=== PATIENT | male | born 1975 | race Caucasian/White ===

== ENCOUNTER 2018-03-02 10:29 | Emergency (ER) | payer OTHER ==
[2018-03-02] MEDS ORDERED: MAG HYDROX/AL HYDROX/SIMETH SUSP 30 ML UDCUP PO ONE (11:08)
[2018-03-02] MEDS ORDERED: LIDOCAINE 2% VISCOUS SOLN 20 ML UDCUP PO ONE (11:08)
--- NOTE | 2018-03-02 11:09 | ER Document Report ---
ED GI/ - General Chief Complaint: Abdominal Pain Stated Complaint: ABDOMINAL PAIN Time Seen by Provider: 03/02/18 10:57 Mode of Arrival: Ambulatory Information source: Patient Notes: Patient presents complaining of left upper quadrant abdominal pain for the past week. Patient states pain is worse after eating. Patient denies any fever, nausea, vomiting or diarrhea. Patient denies any urinary symptoms. Patient does report occasionally feeling lightheaded. Patient does report occasional binge drinking with last episode over a week ago. TRAVEL OUTSIDE OF THE [place] IN LAST 30 DAYS: No - HPI Patient complains to provider of: Abdominal pain Onset: Last week Timing/Duration: Persistent Quality of pain: Achy Pain Level: 4 Associated symptoms: Lightheaded. 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 denies: Fever EENT: No symptoms reported Cardiovascular: Lightheaded. denies: Chest pain Respiratory: No symptoms reported. denies: Cough, Short of breath Gastrointestinal: Abdominal pain. denies: Diarrhea, Nausea, Vomiting, Poor appetite Genitourinary: No symptoms reported. denies: Dysuria, Flank pain Male Genitourinary: No symptoms reported Musculoskeletal: No symptoms reported. denies: Back pain Skin: No symptoms reported Hematologic/Lymphatic: No symptoms reported Neurological/Psychological: No symptoms reported Physical Exam - Vital signs Vitals: Temp Pulse Resp BP Pulse Ox 98.3 F 60 18 112/71 100 03/02/18 10:37 03/02/18 10:37 03/02/18 10:37 03/02/18 10:37 03/02/18 10:37 - General General appearance: Appears well, Alert In distress: None - HEENT Head: Normocephalic, Atraumatic Eyes: Normal Conjunctiva: Normal Nasal: Normal Mouth/Lips: Normal Mucous membranes: Normal Pharynx: Normal Neck: Normal, Supple. No: Lymphadenopathy - Respiratory Respiratory status: No respiratory distress Chest status: Nontender Breath sounds: Normal Chest palpation: Normal - Cardiovascular Rhythm: Regular Heart sounds: S1 appreciated, S2 appreciated Murmur: No - Abdominal Inspection: Normal Distension: No distension Bowel sounds: Normal Tenderness: Tender - LUQ Organomegaly: No organomegaly - Back Back: Normal, Nontender. No: CVA tenderness - Extremities General upper extremity: Normal inspection, Normal strength General lower extremity: Normal inspection, Normal strength - Neurological Neuro grossly intact: Yes Cognition: Normal Maikol Coma Scale Eye Opening: Spontaneous Maikol Coma Scale Verbal: Oriented [place] Coma Scale Motor: Obeys Commands Maikol Coma Scale Total: 15 - Psychological Associated symptoms: Normal affect, Normal mood - Skin Skin Temperature: Warm Skin Moisture: Dry Skin Color: Normal Course - Re-evaluation Re-evalutation: 03/02/18 15:40 Patient's abdomen soft, nontender, patient denies any nausea or vomiting at this time. Reviewed results of patient's scan with him. No concern for any inflammatory bowel symptoms, obstruction or acute pathology at this time. Suspect patient likely has gastritis. Discussed things that can worsen gastritis. Patient states that he just remembered that he had been taking increased doses of [id number] anti-inflammatory medication for chronic left ankle pain. Patient encouraged to avoid alcohol and to follow-up with a regional service manager for further evaluation of his abdominal pain. - Vital Signs Vital signs: Temp Pulse Resp BP Pulse Ox 97.8 F 55 L 16 113/78 98 03/02/18 15:58 03/02/18 15:58 03/02/18 15:58 03/02/18 15:58 03/02/18 15:58 - Laboratory Result Diagrams: 03/02/18 11:16 03/02/18 11:16 Laboratory results interpreted by me: Labs- Entire Visit 03/02/18 03/02/18 03/02/18 11:16 11:16 11:16 WBC 7.9 RBC 4.71 Hgb 14.8 Hct 42.2 MCV 90 MCH 31.4 MCHC 35.1 RDW 13.9 Plt Count 227 Seg Neutrophils % 64.0 Lymphocytes % 26.1 Monocytes % 8.3 Eosinophils % 1.1 Basophils % 0.5 Absolute Neutrophils 5.1 Absolute Lymphocytes 2.1 Absolute Monocytes 0.7 Absolute Eosinophils 0.1 Absolute Basophils 0.0 Sodium 140.1 Potassium 4.5 Chloride 105 Carbon Dioxide 25 Anion Gap 10 BUN 13 Creatinine 0.84 Est GFR ( Amer) > 60 Est GFR (Non-Af Amer) > 60 Glucose 99 Calcium 9.2 Total Bilirubin 0.8 Direct Bilirubin 0.2 Neonat Total Bilirubin Not Reportable Neonat Direct Bilirubin Not Reportable Neonat Indirect Bili Not Reportable AST 21 ALT 22 Alkaline Phosphatase 51 Troponin I < 0.012 Total Protein 7.1 Albumin 4.3 Lipase 38.9 Urine Color Urine Appearance Urine pH Ur Specific Mayer Urine Protein Urine Glucose (UA) Urine Ketones Urine Blood Urine Nitrite Urine Bilirubin Urine Urobilinogen Ur Leukocyte Esterase Urine Mucus (Auto) Urine Ascorbic Acid 03/02/18 12:15 WBC RBC Hgb Hct MCV MCH MCHC RDW Plt Count Seg Neutrophils % Lymphocytes % Monocytes % Eosinophils % Basophils % Absolute Neutrophils Absolute Lymphocytes Absolute Monocytes Absolute Eosinophils Absolute Basophils Sodium Potassium Chloride Carbon Dioxide Anion Gap BUN Creatinine Est GFR ( Amer) Est GFR (Non-Af Amer) Glucose Calcium Total Bilirubin Direct Bilirubin Neonat Total Bilirubin Neonat Direct Bilirubin Neonat Indirect Bili AST ALT Alkaline Phosphatase Troponin I Total Protein Albumin Lipase Urine Color STRAW Urine Appearance CLEAR Urine pH 7.0 Ur Specific Mayer 1.009 Urine Protein NEGATIVE Urine Glucose (UA) NEGATIVE Urine Ketones NEGATIVE Urine Blood NEGATIVE Urine Nitrite NEGATIVE Urine Bilirubin NEGATIVE Urine Urobilinogen NEGATIVE Ur Leukocyte Esterase NEGATIVE Urine Mucus (Auto) RARE Urine Ascorbic Acid NEGATIVE - Diagnostic Test Radiology reviewed: Reports reviewed Discharge - Discharge Clinical Impression: Abdominal pain Qualifiers: Abdominal location: left upper quadrant Qualified Code(s): R10.12 - Left upper quadrant pain Condition: Stable Disposition: HOME, SELF-CARE Instructions: Abdominal Pain ([facility]) Additional Instructions: Return immediately for any new or worsening symptoms Followup with your primary care provider, call tomorrow to make a followup appointment Follow-up with a regional service manager for further evaluation. You may need additional outpatient studies to further evaluate your abdominal pain symptoms. Avoid alcohol and use of excessive nonsteroidal anti-inflammatory medications [id number] Prescriptions: Sucralfate [Carafate 1 gm Tablet] 1 gm PO ACHS #40 tablet Forms: Smoking Cessation Education, Return to Work Referrals: [facility] [Provider Group] - Follow up as needed JANINE ROSAS MD [ACTIVE STAFF] - Follow up as needed AMARIS LADD MD [NO LOCAL MD] - Follow up as needed JORY WONG MD [ACTIVE STAFF] - Follow up as needed
[2018-03-02 11:27] LABS: ABSOLUTE EOSINOPHILS # (AUTO) 0.1 10^3/uL (0.0-0.6); ABSOLUTE LYMPHOCYTES (AUTO) 2.1 10^3/uL (0.5-4.7); ABSOLUTE MONOCYTES (AUTO) 0.7 10^3/uL (0.1-1.4); ABSOLUTE NEUT (AUTO) 5.1 10^3/uL (1.7-8.2); BASOPHILS % (AUTO) 0.5 % (0-2); EOSINOPHILS % (AUTO) 1.1 % (0-6); HEMATOCRIT 42.2 % (37.9-51.0); HEMOGLOBIN 14.8 g/dL (13.5-17.0); LYMPHOCYTES % (AUTO) 26.1 % (13-45); MEAN CORPUSCULAR HEMOGLOBIN 31.4 pg (27.0-33.4); MEAN CORPUSCULAR HGB CONC 35.1 g/dL (32.0-36.0); MEAN CORPUSCULAR VOLUME 90 fl (80-97); MONOCYTES % (AUTO) 8.3 % (3-13); PLATELET COUNT 227 10^3/uL (150-450); RED BLOOD COUNT 4.71 10^6/uL (4.35-5.55); RED CELL DISTRIBUTION WIDTH 13.9 % (11.5-14.0); TOTAL CELLS COUNTED % (AUTO) 100 %; WHITE BLOOD COUNT 7.9 10^3/uL (4.0-10.5)
[2018-03-02 11:44] LABS: ALANINE AMINOTRANSFERASE 22 U/L (21-72); ALBUMIN 4.3 g/dL (3.5-5.0); ALKALINE PHOSPHATASE 51 U/L (38-126); ANION GAP 10 (5-19); ASPARTATE AMINO TRANSFERASE 21 U/L (17-59); BILIRUBIN,DIRECT 0.2 mg/dL (0.0-0.4); BILIRUBIN,TOTAL 0.8 mg/dL (0.2-1.3); BLOOD UREA NITROGEN 13 mg/dL (7-20); CALCIUM 9.2 mg/dL (8.4-10.2); CARBON DIOXIDE 25 mmol/L (22-30); CHLORIDE 105 mmol/L (98-107); GLUCOSE 99 mg/dL (75-110); LIPASE 38.9 U/L (23-300); POTASSIUM 4.5 mmol/L (3.6-5.0); SODIUM 140.1 mmol/L (137-145); TOTAL PROTEIN 7.1 g/dL (6.3-8.2)
--- NOTE | 2018-03-02 11:59 | RADIOLOGY REPORT (SQ) ---
EXAM DESCRIPTION: ACUTE ABDOMEN SERIES COMPLETED DATE/TIME: 03/02/2018 11:43 am REASON FOR STUDY: LUQ pain COMPARISON: None. NUMBER OF VIEWS: Three views. TECHNIQUE: Frontal chest, supine abdomen and upright/decubitus abdomen radiographic images acquired. LIMITATIONS: None. FINDINGS: CHEST: Lungs clear of infiltrates. FREE AIR: None. No abnormal gas collections. BOWEL GAS PATTERN: Nonobstructive pattern. No dilated loops or air fluid levels. CALCIFICATIONS: No suspicious calcifications. HARDWARE: None in the abdomen. SOFT TISSUES: No gross mass or suggestion of organomegaly. BONES: No acute fracture. No worrisome bone lesions. OTHER: No other significant finding. IMPRESSION: NO RADIOGRAPHIC EVIDENCE FOR ACUTE ABDOMINAL DISEASE. TECHNICAL DOCUMENTATION: JOB ID: [id number] [employer]- All Rights Reserved Reading location - IP/workstation name: [email or web address]-[email or web address]
--- NOTE | 2018-03-02 12:48 | EKG REPORT ---
SEVERITY:- ABNORMAL ECG - SINUS RHYTHM FIRST DEGREE AV BLOCK : Confirmed by: Gregg Guerrero MD 02-Mar-2018 12:48:04
[2018-03-02 12:51] LABS: APPEARANCE,URINE CLEAR; BILIRUBIN,URINE NEGATIVE (NEGATIVE); COLOR,URINE STRAW; GLUCOSE, URINE NEGATIVE (NEGATIVE); KETONES,URINE NEGATIVE (NEGATIVE); LEUKOCYTE ESTERASE,URINE NEGATIVE (NEGATIVE); NITRITE,URINE NEGATIVE (NEGATIVE); PROTEIN,URINE NEGATIVE (NEGATIVE); URINE SPECIFIC GRAVITY 1.009; UROBILINOGEN,URINE NEGATIVE mg/dL (<2.0)
--- NOTE | 2018-03-02 15:34 | RADIOLOGY REPORT (SQ) ---
EXAM DESCRIPTION: CT ABD/PELVIS WITH IV ORAL COMPLETED DATE/TIME: 03/02/2018 3:22 pm REASON FOR STUDY: LUQ pain COMPARISON: None. TECHNIQUE: CT scan of the abdomen and pelvis performed with intravenous and oral contrast using kaye jessie scanning technique with dynamic intravenous contrast injection. Images reviewed with lung, soft t issue, and bone windows. Reconstructed coronal and sagittal MPR images reviewed. Delayed images for e valuation of the urinary system also acquired. All images stored on PACS. All CT scanners at this facility use dose modulation, iterative reconstruction, and/or weight based d osing when appropriate to reduce radiation dose to as low as reasonably achievable (ALARA). [facility]: Dose Right [facility]: CareDose [facility]: Dose Right [facility]: Teradose 4D [facility]: [place] CONTRAST TYPE AND DOSE: contrast/concentration: Isovue 350.00 mg/ml; Total Contrast Delivered: 89.0 ml; Total Saline Delivered: 50.0 ml RENAL FUNCTION: GFR > 60. RADIATION DOSE: CT Rad equipment meets quality standard of care and radiation dose reduction techniq ues were employed. CTDIvol: 6.2 - 8.5 mGy. DLP: 796 mGy-cm. . LIMITATIONS: None. FINDINGS: LOWER CHEST: No significant findings. No nodules or infiltrates. LIVER: Normal size. No masses. No dilated ducts. SPLEEN: Normal size. No focal lesions. PANCREAS: No masses. No significant calcifications. No adjacent inflammation or peripancreatic fluid collections. Pancreatic duct not dilated. GALLBLADDER: No identified stones by CT criteria. No inflammatory changes to suggest cholecystitis. ADRENAL GLANDS: No significant masses or asymmetry. RIGHT KIDNEY AND URETER: No solid masses. No significant calcifications. No hydronephrosis or hyd roureter. LEFT KIDNEY AND URETER: No solid masses. No significant calcifications. No hydronephrosis or hydr oureter. AORTA AND VESSELS: No aneurysm. No dissection. Renal arteries, SMA, celiac without stenosis. RETROPERITONEUM: No retroperitoneal adenopathy, hemorrhage or masses. BOWEL AND PERITONEAL CAVITY: No obstruction. No visualized masses. No free fluid. No inflammatory ch anges or thickening of bowel wall. APPENDIX: Surgically absent. PELVIS: No significant masses. Normal bladder. No free fluid. ABDOMINAL WALL: Mild containing umbilical hernia. BONES: No significant or acute findings. OTHER: No other significant finding. IMPRESSION: NO SIGNIFICANT OR ACUTE FINDINGS IN THE ABDOMEN OR PELVIS. TECHNICAL DOCUMENTATION: JOB ID: [id number] Quality ID # [id number]: Final reports with documentation of one or more dose reduction techniques (e.g., Au tomated exposure control, adjustment of the mA and/or kV according to patient size, use of iterative reconstruction technique) 2010 [employer]- All Rights Reserved Reading location - IP/workstation name: [email or web address] [id number]
[2018-03-02 15:59] VITALS: BP 113/78
== END 2018-03-02 15:59 | disposition home or self-care (01) ==
LOC: ER 10:29
DX: R10.12 Left upper quadrant pain (principal); F17.200 Nicotine dependence, unspecified, uncomplicated; Z88.0 Allergy status to penicillin
CPT/HCPCS: 93005; 99285; 36415; 83690; 85025; 80053; 81001; 84484; 74022; 74177; 93010; J3490

== ENCOUNTER 2019-08-23 09:57 | Emergency (ER) | payer SELFPAY ==
--- NOTE | 2019-08-23 10:54 | ER Document Report ---
ED General <LYNN,ASHLEY - Last Filed: 08/23/19 14:09> - General TRAVEL OUTSIDE OF THE [place] IN LAST 30 DAYS: No - Related Data Home Medications: Multivitamin <ALLISON MONREAL - Last Filed: 08/23/19 14:26> - General Chief Complaint: Alcohol Withdrawl Stated Complaint: WITHDRAWAL/ALCOHOL Time Seen by Provider: 08/23/19 10:20 Primary Care Provider: [facility] [Outside] - Follow up as needed - HPI Notes: Patient is a 44-year-old male who presents the emergency department for evalua tion for help with alcohol withdrawal. The patient has been a longtime alcoholic. He states he was doing well for the last 11 months, although he admits to "a few slips." He states that he has been increasingly depressed over loss of job availability. 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 He admits to a recent 5-day drinking binge. He states he was drinking at least 1 case of beer daily. He is really unsure of the timeline. He states is been about 5 days since his last drink. He states that the second night was the worst. He is had shaking, sweating, vomiting. He is now keeping some fluids down. He is eating and drinking, still urinating. He states that his largest problem at this point is insomnia. He denies any current hallucinations, no suicidal or homicidal ideation. (ALLISON MONREAL) - Related Data Allergies/Adverse Reactions: amoxicillin [Amoxicillin] Allergy (Verified 03/02/18 10:33) Penicillins Allergy (Verified 03/02/18 10:33) Past Medical History - General Information source: Patient - Social History Smoking Status: Current Every Day Smoker Frequency of alcohol use: Heavy Drug Abuse: None Family History: None Patient has suicidal ideation: No Patient has homicidal ideation: No Renal/ Medical History: Denies: Hx Peritoneal Dialysis Psychiatric Medical History: Reports: Hx Depression Past Surgical History: Reports: Hx Appendectomy, Hx Orthopedic Surgery - left ankle - Immunizations Hx Diphtheria, Pertussis, Tetanus Vaccination: No <ALLISON MONREAL - Last Filed: 08/23/19 14:26> Review of Systems - Review of Systems Constitutional: See HPI Neurological/Psychological: See HPI -: Yes All other systems reviewed and negative <ALLISON MONREAL - Last Filed: 08/23/19 14:26> Physical Exam <ALLISON MONREAL - Last Filed: 08/23/19 14:26> - Vital signs Vitals: Temp Pulse Resp BP Pulse Ox 97.9 F 65 14 140/89 H 100 08/23/19 10:01 08/23/19 10:01 08/23/19 10:01 08/23/19 10:01 08/23/19 10:01 - Notes Notes: This is a very pleasant gentleman who appears his stated age, no acute distress. He is a very fine tremor to his hands, but otherwise shows no overt signs of internal stimuli, cooperative with examiner. Vital signs reviewed, please refer to chart. Head is normocephalic, atraumatic. Pupils equal round, reactive to light. Neck is supple without meningismus. Heart is regular rate and rhythm. Lungs are clear to auscultation bilaterally. Abdomen is soft, nontender, normoactive bowel sounds throughout. Extremities without cyanosis, clubbing. Posterior calves are nontender. Peripheral pulses are equal. Skin is warm and dry. Patient is awake, alert, neurological exam is nonfocal. (ALLISON MONREAL) Course - Laboratory Result Diagrams: 08/23/19 11:02 08/23/19 11:02 <ASHLEY LYNN - Last Filed: 08/23/19 14:09> - Laboratory Result Diagrams: 08/23/19 11:02 08/23/19 11:02 <ALLISON MONREAL - Last Filed: 08/23/19 14:26> - Re-evaluation Re-evalutation: 08/23/19 10:54 Patient presents to the emergency department for evaluation. Laboratory investigations are ordered. Consultation with psychosocial services ordered as well. Patient has trazodone at home and states that it has not been helping. Appreciate their input in regards to possible other treatments. Patient is stable at this time, we will continue to monitor. 08/23/19 14:21 Patient has remained stable. His laboratory investigations are unremarkable. It is been 5 days since he had a drink, but he is still having very mild symptoms. He would like potential inpatient or [facility]. Awaiting psychosocial clearance to that facility. (ALLISON MONREAL) - Vital Signs Vital signs: Temp Pulse Resp BP Pulse Ox 97.9 F 65 14 122/93 H 98 08/23/19 10:01 08/23/19 10:01 08/23/19 13:45 08/23/19 13:01 08/23/19 13:45 - Laboratory Laboratory results interpreted by me: 08/23/19 08/23/19 11:02 11:02 RDW 14.6 H Plt Count 100 L [place] % (Auto) 15.7 H Sodium 135.8 L AST 196 H ALT 132 H Salicylates < 1.0 L Acetaminophen < 10 L Discharge <ASHLEY LYNN - Last Filed: 08/23/19 14:09> <DEBRALARRYALLISON - Last Filed: 08/23/19 14:26> - Discharge Clinical Impression: Alcohol abuse Condition: Stable Disposition: HOME, SELF-CARE Additional Instructions: You have been evaluated by both medical and behavioral health teams for detox and have been deemed appropriate for discharge. While in the emergency department you received the following services: Medical screening and assessment, nursing services, dietary services, pharmacological services, one-on-one counseling and/or psychotherapy, environmental services, and continuous observation by a patient product safety specialist. The behavioral health team has secured a bed at [facility] for detox. This is a voluntary placement; you are highly encouraged to follow through with this placement. Please arrive at [facility] at 5pm, they will only hold this bed for your until 530pm. CHRONIC ALCOHOLISM and ALCOHOL ABUSE: Your evaluation reveals evidence of chronic alcoholism, an addiction to alcohol. The tendency to alcoholism may be inherited. Chronic use of alcohol weakens muscles, causes fatty deposits in the liver, damages the stomach, makes you more prone to infections, and can cause d efects in unborn children. In the long run, brain atrophy and cirrhosis of the liver result. You are also at greater risk for certain types of cancer, such as cancer of the mouth, throat, stomach, and liver. Counselling services are available to help you. In-hospital treatment programs often help. Support groups such as Alcoholics Anonymous can be very useful in beating this addiction. Your physician can make a referral for you. As alcoholics often are prone to other addictions, you should discuss your use of any other medications with the doctor. FOLLOW-UP CARE: If you have been referred to a physician for follow-up care, call the physicians office for an appointment as you were instructed or within the next two days. If you experience worsening or a significant change in your symptoms, notify the physician immediately or return to the Emergency Department at any time for re-evaluation. Referrals: [facility] [Outside] - Follow up as needed
[2019-08-23 11:20] LABS: ABSOLUTE BASOPHILS # (AUTO) 0.1 10^3/uL (0.0-0.2); ABSOLUTE EOSINOPHILS # (AUTO) 0.2 10^3/uL (0.0-0.6); ABSOLUTE LYMPHOCYTES (AUTO) 1.2 10^3/uL (0.5-4.7); ABSOLUTE MONOCYTES (AUTO) 0.7 10^3/uL (0.1-1.4); ABSOLUTE NEUT (AUTO) 2.4 10^3/uL (1.7-8.2); BASOPHILS % (AUTO) 1.3 % (0-2); EOSINOPHILS % (AUTO) 4.1 % (0-6); HEMATOCRIT 40.2 % (37.9-51.0); LYMPHOCYTES % (AUTO) 26.5 % (13-45); MEAN CORPUSCULAR HEMOGLOBIN 31.4 pg (27.0-33.4); MEAN CORPUSCULAR HGB CONC 34.9 g/dL (32.0-36.0); MEAN CORPUSCULAR VOLUME 90 fl (80-97); MONOCYTES % (AUTO) 15.7 % (3-13); PLATELET COUNT 100 10^3/uL (150-450); RED BLOOD COUNT 4.46 10^6/uL (4.35-5.55); RED CELL DISTRIBUTION WIDTH 14.6 % (11.5-14.0); SEGMENTED NEUTROPHILS % (AUTO) 52.4 % (42-78); TOTAL CELLS COUNTED % (AUTO) 100 %; WHITE BLOOD COUNT 4.6 10^3/uL (4.0-10.5)
[2019-08-23 11:40] LABS: ALBUMIN 4.4 g/dL (3.5-5.0); ALKALINE PHOSPHATASE 71 U/L (38-126); ANION GAP 7 (5-19); ASPARTATE AMINO TRANSFERASE 196 U/L (17-59); BILIRUBIN,TOTAL 0.7 mg/dL (0.2-1.3); BLOOD UREA NITROGEN 12 mg/dL (7-20); CALCIUM 9.2 mg/dL (8.4-10.2); CARBON DIOXIDE 23 mmol/L (22-30); CHLORIDE 106 mmol/L (98-107); GLUCOSE 95 mg/dL (75-110); TOTAL PROTEIN 7.2 g/dL (6.3-8.2)
[2019-08-23 11:44] LABS: ACETAMINOPHEN < 10 ug/mL (10-30); ALCOHOL < 10 mg/dL (NONE DETECTED); SALICYLATE < 1.0 mg/dL (2.0-20.0)
--- NOTE | 2019-08-23 13:11 | PSYCHOLOGICAL NOTE ---
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 Patient reports the last time he had a seizure was in 2013 however admits to having successfully detoxed multiple times since then without suffering from seizures. Patient reports he would like to go to [facility] but came here first "I wanted to get medically cleared to feel better about going into detox." He states he has not been able to sleep. He reports he has been able to move up to eating solids again but is still staying away from dairy. 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 Patient reports he has been sensitive to touch and at times feels like his mind is playing tricks on him stating "I could have sworn someone was in the house with me this morning but I knew there was not." Patient is alert and orientated to person, place, time and circumstance. Mood is euthymic with congruent affect. Patient denies suicidal and homicidal ideation. Delusions are absent and behaviors congruent with an intact reality based presentation ie organized and linear thought process. Eye contact is well-maintained. Conversational speech is within normal rate, tone and prosody. Intellectual abilities appear to be within the average range. Attention and concentration are good. Insight, judgment, impulse control are fair. Impression\\plan: Patient is cleared from acute psychiatric services. Patient is requesting assistance in getting into detox with [facility]. He reports he came to the ED to ensure he was medically alright since he has a history of having a seizure during detox (last time patient had a seizure was about 2013). The past time he went through detox was about 1 year ago and he did not have any complications (ie seizures, delirium, ect). Patient confirms he understands the rules are the same at [facility] and is packed and ready. A voluntary detox bed has b een secured for the patient for a 5pm arrival, he is encouraged to follow though with this voluntary placement. Dr. Ortiz was consulted to care management of this patient; attending physicians in agreement with recommendations and disposition.
[2019-08-23 13:14] LABS: APPEARANCE,URINE CLEAR; BILIRUBIN,URINE NEGATIVE (NEGATIVE); COLOR,URINE STRAW; GLUCOSE, URINE NEGATIVE (NEGATIVE); KETONES,URINE NEGATIVE (NEGATIVE); LEUKOCYTE ESTERASE,URINE NEGATIVE (NEGATIVE); NITRITE,URINE NEGATIVE (NEGATIVE); PROTEIN,URINE NEGATIVE (NEGATIVE); URINE SPECIFIC GRAVITY 1.003; UROBILINOGEN,URINE NEGATIVE mg/dL (<2.0)
[2019-08-23 13:34] LABS: URINE AMPHETAMINES SCREEN NEGATIVE; URINE BARBITURATES SCREEN NEGATIVE; URINE BENZODIAZEPINES SCREEN NEGATIVE; URINE COCAINE SCREEN NEGATIVE; URINE MARIJUANA (THC) SCREEN NEGATIVE; URINE METHADONE SCREEN NEGATIVE; URINE PHENCYCLIDINE SCREEN NEGATIVE
[2019-08-23 15:27] VITALS: BP 118/98
--- NOTE | 2019-08-23 21:24 | EKG REPORT ---
SEVERITY:- ABNORMAL ECG - SINUS RHYTHM FIRST DEGREE AV BLOCK : Confirmed by: Yvette Dave MD 23-Aug-2019 21:23:08
== END 2019-08-23 15:27 | disposition home or self-care (01) ==
LOC: ER 09:57
DX: F10.10 Alcohol abuse, uncomplicated (principal); F32.9 Major depressive disorder, single episode, unspecified; G47.00 Insomnia, unspecified; Z88.1 Allergy status to other antibiotic agents; F17.200 Nicotine dependence, unspecified, uncomplicated
CPT/HCPCS: 36415; 80053; 80307; 81001; 85025; 93005; 93010; 99285

== ENCOUNTER 2019-09-01 20:45 | Emergency (ER) | payer SELFPAY ==
--- NOTE | 2019-09-01 21:18 | ER Document Report ---
ED General - General Chief Complaint: ETOH Abuse Stated Complaint: ETOH ABUSE Time Seen by Provider: 09/01/19 21:12 Mode of Arrival: Ambulatory Information source: Patient Notes: 44-year-old male arrives with chief complaint of drinking a lot of alcohol after losing his job and becoming despondent about this. Patient had quit for many months but then resumed because of his personal loss. 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 His contract and he went from making money to no money. He likes to play the [employer] and was raised and [facility]. Patient is a usual beer drinker and drinks a case of beer over the last several weeks a day. Patient has been drinking vodka as well for the last day or so. Patient denies any suicidal ideation or homicidal ideation denies any chest pain diarrhea constipation skin rash liver disease sore throat cephalgia nuchal rigidity Patient has been [facility] but Tamela RUIZ advises she was told that the patient's alcohol level should be beneath 200. For this reason patient was given 2 L of saline and 2 L of LR TRAVEL OUTSIDE OF THE [place] IN LAST 30 DAYS: No - Related Data Allergies/Adverse Reactions: amoxicillin [Amoxicillin] Allergy (Verified 03/02/18 10:33) Penicillins Allergy (Verified 03/02/18 10:33) Past Medical History - General Information source: Patient - Social History Smoking Status: Current Every Day Smoker Cigarette use (# per day): Yes Chew tobacco use (# tins/day): No Smoking Education Provided: Yes Frequency of alcohol use: Heavy Drug Abuse: None Lives with: Family Family History: None Patient has suicidal ideation: No Patient has homicidal ideation: No Renal/ Medical History: Denies: Hx Peritoneal Dialysis Psychiatric Medical History: Reports: Hx Depression Past Surgical History: Reports: Hx Appendectomy, Hx Orthopedic Surgery - left ankle - Immunizations Hx Diphtheria, Pertussis, Tetanus Vaccination: No Review of Systems - Review of Systems Constitutional: See HPI, Malaise, Weakness EENT: No symptoms reported Cardiovascular: No symptoms reported Respiratory: No symptoms reported Gastrointestinal: No symptoms reported Genitourinary: No symptoms reported Male Genitourinary: No symptoms reported Musculoskeletal: No symptoms reported Skin: No symptoms reported Hematologic/Lymphatic: No symptoms reported Neurological/Psychological: No symptoms reported Physical Exam - Vital signs Vitals: Temp Pulse Resp BP Pulse Ox 98.9 F 87 18 122/88 H 98 09/01/19 20:50 09/01/19 20:50 09/01/19 20:50 09/01/19 20:50 09/01/19 20:50 Interpretation: Normal - General General appearance: Anxious - HEENT Head: Normocephalic, Atraumatic Eyes: Normal Pupils: PERRL Nasal: Normal Mouth/Lips: Normal Mucous membranes: Normal Pharynx: Normal Neck: Normal - Respiratory Respiratory status: No respiratory distress Chest status: Nontender Breath sounds: Normal Chest palpation: Normal - Cardiovascular Rhythm: Regular Heart sounds: Normal auscultation Murmur: No - Abdominal Inspection: Normal Distension: No distension Bowel sounds: Normal Tenderness: Nontender Organomegaly: No organomegaly - Genitourinary Scrotum: Other - deferred - Back Back: Normal, Nontender - Extremities General upper extremity: Normal inspection General lower extremity: Normal inspection - Neurological Neuro grossly intact: Yes Cognition: Normal Orientation: AAOx4 Edmonds Coma Scale Eye Opening: Spontaneous Edmonds Coma Scale Verbal: Oriented Edmonds Coma Scale Motor: Obeys Commands Edmonds Coma Scale Total: 15 Speech: Normal Motor strength normal: LUE, RUE, LLE, RLE Sensory: Normal - Psychological Associated symptoms: Normal affect - Skin Skin Temperature: Warm Skin Moisture: Dry Course - Vital Signs Vital signs: Temp Pulse Resp BP Pulse Ox 98.9 F 87 15 101/75 95 09/01/19 20:50 09/01/19 20:50 09/01/19 23:01 09/01/19 23:00 09/01/19 23:01 - Laboratory Result Diagrams: 09/01/19 21:17 09/01/19 21:17 Laboratory results interpreted by me: 09/01/19 09/01/19 09/01/19 21:17 21:17 21:17 RDW 15.3 H Plt Count 461 H Lactic Acid 2.3 H AST 87 H ALT 201 H Salicylates < 1.0 L Acetaminophen < 10 L Critical Care Note - Critical Care Note Total time excluding time spent on procedures (mins): 90 Comments: This case was turned over to Musa MENDOZA for recheck on alcohol level at 0 300 Discharge - Discharge Clinical Impression: Alcohol intoxication Qualifiers: Complication of substance-induced condition: uncomplicated Qualified Code(s): F10.920 - Alcohol use, unspecified with intoxication, uncomplicated Condition: Fair Disposition: PSYCH HOSP/UNIT Additional Instructions: Transfer this patient to rehab [facility] after discharge
[2019-09-01] MEDS: NORMAL SALINE 1000 ML 1,000 ML IV PRN (21:28)
[2019-09-01 21:33] LABS: HEMATOCRIT 42.9 % (37.9-51.0); HEMOGLOBIN 15.3 g/dL (13.5-17.0); MEAN CORPUSCULAR HEMOGLOBIN 31.8 pg (27.0-33.4); MEAN CORPUSCULAR HGB CONC 35.6 g/dL (32.0-36.0); MEAN CORPUSCULAR VOLUME 89 fl (80-97); PLATELET COUNT 461 10^3/uL (150-450); RED BLOOD COUNT 4.79 10^6/uL (4.35-5.55); RED CELL DISTRIBUTION WIDTH 15.3 % (11.5-14.0); WHITE BLOOD COUNT 6.4 10^3/uL (4.0-10.5)
[2019-09-01 21:48] LABS: ALBUMIN 4.8 g/dL (3.5-5.0); ALCOHOL 289 mg/dL (NONE DETECTED); ALKALINE PHOSPHATASE 60 U/L (38-126); ANION GAP 9 (5-19); ASPARTATE AMINO TRANSFERASE 87 U/L (17-59); BILIRUBIN,TOTAL 0.5 mg/dL (0.2-1.3); BLOOD UREA NITROGEN 12 mg/dL (7-20); CALCIUM 9.1 mg/dL (8.4-10.2); CARBON DIOXIDE 27 mmol/L (22-30); CHLORIDE 105 mmol/L (98-107); CREATINE KINASE 101 U/L (55-170); GLUCOSE 81 mg/dL (75-110); POTASSIUM 4.5 mmol/L (3.6-5.0); TOTAL PROTEIN 7.7 g/dL (6.3-8.2)
[2019-09-01 21:49] LABS: ACETAMINOPHEN < 10 ug/mL (10-30); SALICYLATE < 1.0 mg/dL (2.0-20.0)
[2019-09-01 21:50] LABS: ABSOLUTE LYMPHOCYTES# (MANUAL) 2.7 10^3/uL (0.5-4.7); ABSOLUTE MONOCYTES # (MANUAL) 0.8 10^3/uL (0.1-1.4); BASOPHILS % (MANUAL) 1 % (0-2); EOSINOPHILS % (MANUAL) 1 % (0-6); LYMPHOCYTES % (MANUAL) 40 % (13-45); MONOCYTES % (MANUAL) 12 % (3-13); SEGMENTED NEUTROPHILS % (MAN) 44 % (42-78); TOTAL CELLS COUNTED 100
[2019-09-01 21:52] LABS: ANISOCYTOSIS SLIGHT; PLATELET COMMENT ADEQUATE; POIKILOCYTOSIS SLIGHT; TEAR DROP CELLS SLIGHT; TOXIC GRANULATION SLIGHT
[2019-09-02] MEDS: RINGERS SOLUTION,LACTATED 1,000 ML IV PRN ×2 (00:53→01:44)
[2019-09-02 02:37] LABS: APPEARANCE,URINE CLEAR; BILIRUBIN,URINE NEGATIVE (NEGATIVE); COLOR,URINE YELLOW; GLUCOSE, URINE NEGATIVE (NEGATIVE); KETONES,URINE NEGATIVE (NEGATIVE); LEUKOCYTE ESTERASE,URINE NEGATIVE (NEGATIVE); NITRITE,URINE NEGATIVE (NEGATIVE); PROTEIN,URINE NEGATIVE (NEGATIVE); URINE SPECIFIC GRAVITY 1.014; UROBILINOGEN,URINE NEGATIVE mg/dL (<2.0)
[2019-09-02 02:40] LABS: URINE AMPHETAMINES SCREEN NEGATIVE; URINE BARBITURATES SCREEN NEGATIVE; URINE BENZODIAZEPINES SCREEN NEGATIVE; URINE COCAINE SCREEN NEGATIVE; URINE MARIJUANA (THC) SCREEN NEGATIVE; URINE METHADONE SCREEN NEGATIVE; URINE PHENCYCLIDINE SCREEN NEGATIVE
[2019-09-02] MEDS: NORMAL SALINE 1000 ML 1,000 ML IV PRN (04:04)
[2019-09-02 08:49] VITALS: BP 110/63
== END 2019-09-02 09:03 ==
LOC: ER 20:45
DX: F10.120 Alcohol abuse with intoxication, uncomplicated (principal); R53.81 Other malaise; R53.1 Weakness; F17.210 Nicotine dependence, cigarettes, uncomplicated; Z56.0 Unemployment, unspecified; Z88.0 Allergy status to penicillin
CPT/HCPCS: 99285; 96360; 96361; 36415; 80307 ×4; 82550; 83605; 85025; 80053; 81001; 84484; J7030 ×2; J7120

== ENCOUNTER 2019-09-28 01:25 | Emergency (ER) | payer SELFPAY ==
--- NOTE | 2019-09-28 02:18 | ER Document Report ---
ED General - General Chief Complaint: Suicidal Ideation Stated Complaint: IVC Time Seen by Provider: 09/28/19 01:52 TRAVEL OUTSIDE OF THE [place] IN LAST 30 DAYS: No - HPI Notes: Patient is a 44-year-old male with a history of depression and insomnia who presents to the emergency department for evaluation with IVC placed by his ex- . IVC alleged that the patient has been drinking heavily for the last several days, threatened to "blow his head off and burn the house down." The patient states he has no idea where that threat came from. He does admit that he has a binge drinking problem. He states that he does not have any suicidal ideation, nor does he have any homicidal ideation. He denies any visual or auditory hallucination. He denies any history of alcohol withdrawal seizures, states he can go months at a time without drinking, but when he does drink he drinks heavily. Patient has been hospitalized for alcohol abuse in the past, but never for any other psychiatric issues. At this time, the patient denies any pain. He states he has been eating and drinking normally. - Related Data Allergies/Adverse Reactions: amoxicillin [Amoxicillin] Allergy (Verified 09/28/19 01:32) Penicillins Allergy (Verified 09/28/19 01:32) Home Medications: Remeron Past Medical History - General Information source: Patient - Social History Smoking Status: Current Every Day Smoker Frequency of alcohol use: Heavy Drug Abuse: None Family History: None Patient has homicidal ideation: No Renal/ Medical History: Denies: Hx Peritoneal Dialysis Psychiatric Medical History: Reports: Hx Depression Past Surgical History: Reports: Hx Appendectomy, Hx Orthopedic Surgery - left ankle - Immunizations Hx Diphtheria, Pertussis, Tetanus Vaccination: No Review of Systems - Review of Systems Neurological/Psychological: See HPI -: Yes All other systems reviewed and negative Physical Exam - Vital signs Vitals: Temp 97.7 F 09/28/19 01:32 - Notes Notes: This is a 44-year-old male who appears his stated age. He smells strongly of alcohol and is mildly disheveled, intermittently tearful, but calm and cooperative with examiner. Vital signs reviewed, please refer to chart. Head is normocephalic, atraumatic. Pupils equal round, reactive to light. Neck is supple without meningismus. Heart is regular rate and rhythm. Lungs are clear to auscultation bilaterally. Abdomen is soft, nontender, normoactive bowel sounds throughout. Extremities without cyanosis, clubbing. Posterior calves are nontender. Peripheral pulses are equal. Skin is warm and dry. Patient is awake, alert, neurological exam is nonfocal. Course - Re-evaluation Re-evalutation: 09/28/19 02:20 Patient presents to the emergency department for evaluation. IVC is signed by , on chart. He is currently intoxicated. Awaiting laboratory investigations, which will likely show alcohol intoxication, but I am not expecting any other significant findings. Patient is stable at this time. We will continue to monitor. 09/28/19 03:13 Patient's laboratory investigations reveal markedly elevated alcohol. Otherwise his labs are unremarkable. Still awaiting toxicology, but salicylate and acetaminophen was negative. Pending his lowered alcohol level, patient is medically cleared for psychosocial evaluation. - Vital Signs Vital signs: Temp Pulse Resp BP Pulse Ox 97.7 F 128 H 16 153/119 H 94 09/28/19 01:41 09/28/19 01:41 09/28/19 01:41 09/28/19 01:41 09/28/19 01:41 - Laboratory Result Diagrams: 09/28/19 02:35 09/28/19 02:35 Laboratory results interpreted by me: 09/28/19 09/28/19 02:35 02:35 RDW 15.1 H Salicylates < 1.0 L Acetaminophen < 10 L Serum Alcohol 358 H* - EKG Interpretation by Me Additional EKG results interpreted by me: 09/28/19 03:12 Sinus mechanism with rate of 91 bpm. First-degree AV block. Normal axis. No acute ST changes concerning for ischemia or infarction. Discharge - Discharge Clinical Impression: Suicidal ideation Alcohol intoxication Qualifiers: Complication of substance-induced condition: uncomplicated Qualified Code(s): F10.920 - Alcohol use, unspecified with intoxication, uncomplicated Depression Qualifiers: Major depression recurrence: unspecified whether recurrent Major depression episode severity: unspecified Condition: Stable Disposition: OTHER
[2019-09-28 02:50] LABS: ABSOLUTE EOSINOPHILS # (AUTO) 0.1 10^3/uL (0.0-0.6); ABSOLUTE LYMPHOCYTES (AUTO) 2.4 10^3/uL (0.5-4.7); ABSOLUTE MONOCYTES (AUTO) 0.7 10^3/uL (0.1-1.4); ABSOLUTE NEUT (AUTO) 2.6 10^3/uL (1.7-8.2); BASOPHILS % (AUTO) 0.8 % (0-2); EOSINOPHILS % (AUTO) 1.9 % (0-6); HEMATOCRIT 47.2 % (37.9-51.0); HEMOGLOBIN 16.8 g/dL (13.5-17.0); LYMPHOCYTES % (AUTO) 41.3 % (13-45); MEAN CORPUSCULAR HEMOGLOBIN 31.4 pg (27.0-33.4); MEAN CORPUSCULAR HGB CONC 35.6 g/dL (32.0-36.0); MEAN CORPUSCULAR VOLUME 88 fl (80-97); MONOCYTES % (AUTO) 11.4 % (3-13); PLATELET COUNT 238 10^3/uL (150-450); RED BLOOD COUNT 5.35 10^6/uL (4.35-5.55); RED CELL DISTRIBUTION WIDTH 15.1 % (11.5-14.0); SEGMENTED NEUTROPHILS % (AUTO) 44.6 % (42-78); TOTAL CELLS COUNTED % (AUTO) 100 %; WHITE BLOOD COUNT 5.9 10^3/uL (4.0-10.5)
[2019-09-28 03:03] LABS: ALBUMIN 4.8 g/dL (3.5-5.0); ALKALINE PHOSPHATASE 82 U/L (38-126); ANION GAP 17 (5-19); ASPARTATE AMINO TRANSFERASE 50 U/L (17-59); BILIRUBIN,TOTAL 0.5 mg/dL (0.2-1.3); BLOOD UREA NITROGEN 10 mg/dL (7-20); CALCIUM 8.7 mg/dL (8.4-10.2); CARBON DIOXIDE 22 mmol/L (22-30); CHLORIDE 102 mmol/L (98-107); GLUCOSE 88 mg/dL (75-110); POTASSIUM 4.1 mmol/L (3.6-5.0); TOTAL PROTEIN 8.1 g/dL (6.3-8.2)
[2019-09-28 03:04] LABS: ACETAMINOPHEN < 10 ug/mL (10-30); SALICYLATE < 1.0 mg/dL (2.0-20.0)
[2019-09-28 03:11] LABS: ALCOHOL 358 mg/dL (NONE DETECTED)
[2019-09-28 10:05] LABS: APPEARANCE,URINE SLIGHTLY-CLOUDY; BILIRUBIN,URINE NEGATIVE (NEGATIVE); COLOR,URINE YELLOW; GLUCOSE, URINE NEGATIVE (NEGATIVE); KETONES,URINE 20 mg/dL (NEGATIVE); LEUKOCYTE ESTERASE,URINE NEGATIVE (NEGATIVE); NITRITE,URINE NEGATIVE (NEGATIVE); PROTEIN,URINE NEGATIVE (NEGATIVE); URINE SPECIFIC GRAVITY 1.013; UROBILINOGEN,URINE NEGATIVE mg/dL (<2.0)
[2019-09-28 10:19] LABS: URINE AMPHETAMINES SCREEN NEGATIVE; URINE BARBITURATES SCREEN NEGATIVE; URINE BENZODIAZEPINES SCREEN NEGATIVE; URINE COCAINE SCREEN NEGATIVE; URINE MARIJUANA (THC) SCREEN NEGATIVE; URINE METHADONE SCREEN NEGATIVE; URINE PHENCYCLIDINE SCREEN NEGATIVE
--- NOTE | 2019-09-29 00:19 | ER Document Report ---
Doctor's Note Notes: 09/29/19 00:17 Patient seen and examined. In short, the patient presented yesterday intoxicated, had reported to that he was suicidal, was going to burn the house down. She filled out commitment papers. Awaiting placement for this patient. At this point, the patient seems to be resentful of the fact that IVC papers were filed, but he is calm, cooperative, willing to receive help. He denies any acute needs, pain, or complaints. Vital signs reviewed. Patient is awake alert, cooperative examiner. Heart regular rate and rhythm, lungs encrustation bilaterally. Skin is warm and dry. Again, patient with suicidal ideation, binge drinking, awaiting placement as per psychosocial recommendation.
--- NOTE | 2019-09-29 22:35 | PSYCHOLOGICAL NOTE ---
Psych Note - Psych Note Date seen by psych provider: 09/29/19 Time seen by psych provider: 21:30 Psych Note: Reason for Consult: Suicidal ideation Consult request received 09/29/2019 at 2017. Patient arrived 0125 on 09/28/2019 under IVC 24 hour petition for evaluation served at 0059 09/28/2019. Petition was taken out by patient's for concerns for the patient's drinking and making suicidal and homicidal comments. The petition reports the patient stated he wanted to burn the house down with family in it and blow his brains out. The petition has prior to consult request. Patient confirms he has had difficulty over the years with alcoholism and goes on benders that last for days. He reports that normally he drinks only beer however the night he arrived he had actually drank beer and vodka; "I get sideways when I drink clear alcohol, I do not remember saying those things but if I did it was the alcohol talking." Patient denies wanting to harm himself or others. Patient was served today with a domestic protective order. He discusses with clinician his thoughts and emotions surrounding this stating that he is very surprised and hurt but has no plans in trying to challenge or break the protective order. He reports that all he can do is go to court and present his case. Patient states that upon discharge he knows he has to contact the local civil division commander deputy sheriff's department to help him be able to grab his personal belongings from his home. He plans to stay with his mother or some friends. Patient's mother lives in [place] and he has a couple friends and's needs very. Patient discloses he would never harm himself or others and has plenty of friends that would confirm this. Patient states that things have been stressful at home since "the COVID thing" stating that financially things have been difficult. [place] but then lost his job because of COVID; "going from $30 an hour to $600 a week and unemployment." Patient reports that his has her grown adult sons living in the home. He confirms they work however states that it is very frustrating that they will spend $400 at [employer] and all they do is eaten within a week all the food will be gone. 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 to do real estate; "it has been difficult with me being the sole provider because real estate really is not solid it is more hit and miss and then I lost my job." Patient does become tearful briefly when thinking about the end of his marriage stating "this is why people are not supposed to talk out of anger gets blown up out of proportion." When discussing plan of care the patient identifies normally taking home medication of Remeron however had not been taking it because he had been drinking; "it says right there on the bottle not to take it when you drink alcohol." Patient would like to stay voluntarily to restart his psychiatric medications then be able to follow-up with his outpatient mental health provider and the [facility] department tomorrow for coordination to obtain his personal belongings. Patient notes that he will have to turn in all of his weapons to the civil division commander deputy sheriff and that when he goes to court he is going to voluntarily go to substance abuse treatment if the batter out wants him to go. Patient is alert and orientated to person, place, time and circumstance. Mood is dysphoric with tearful affect at times. Patient adamantly denies suicidal and homicidal ideations. He admits to the possibility of making suicidal and homicidal comments while under the influence. Delusions are absent behaviors congruent with an intact reality based presentation i.e. organized and linear thought process. Eye contact is well-maintained. Conversational speech is within normal rate, tone and prosody. Intellectual abilities appear to be within the average range. Attention and concentration are currently good. Insight, judgment, impulse control is good when developing plan of care however historically is poor in connection to his chronic alcoholism. Home medication per chart review Mirtazapine 15mg every evening Impression\\plan: Patient is requesting to voluntarily stay to restart his psychiatric medications. Patient's IVC 24-hour petition for evaluation has . Patient does not meet IVC criteria per [place] GS 122C at this time. Patient admits to the possibility that he made suicidal and homicidal comments while under the influence. He adamantly denies intent. Patient identifies drinking vodka which historically has resulted in poor control of his emotions and decision making when under the influence. Patient demonstrates good insight and judgment in regards to his plan of care. There is concern with the patient's history of chronic alcoholism that there is a chance he will not follow through with substance abuse treatment; however, he identifies willingness to go to a voluntary residential treatment for his alcohol abuse if requested to go by the batter out. Patient engages appropriately with clinician and discusses his thoughts and emotions surrounding being served domestic protection order today and events surrounding the other evening. Patient is recommended to follow-up with his outpatient mental health provider, [facility] to continue substance abuse treatment. Patient will be reevaluated with probable discharge tomorrow. Dr. Ortiz was consulted to care management of this patient; attending physicians in agreement with recommendations and disposition.
[2019-09-29] MEDS ORDERED: MIRTAZAPINE 15 MG TABLET PO SCH (23:15)
--- NOTE | 2019-09-30 10:39 | EKG REPORT ---
SEVERITY:- ABNORMAL ECG - SINUS RHYTHM FIRST DEGREE AV BLOCK : Confirmed by: Miranda Vallejo 30-Sep-2019 10:38:34
--- NOTE | 2019-09-30 13:04 | PSYCHOLOGICAL NOTE ---
Psych Note - Psych Note Date seen by psych provider: 09/30/19 Time seen by psych provider: 12:20 Psych Note: Reason for Consult: Suicidal and homicidal comments, Alcohol abuse Check in conducted with patient: Patient continues to engage appropriately with clinician. He discusses he future, actively develops his plan of care (ie follow up with mental health, staying a a hotel tonight, contacting to make an appointment to obtain his belongs, staying with his mother, etc). Patient reports he is doing better than yesterday, "that paperwork (the domestic restraining order) really threw me for a loop." He reports "it hurts, it really hurts, but I just need to go to court and see what the [place] judge says." He again reflects on is inability to control his behaviors and comments with drinking hard liquor (specifically Vodka); but understand he needs to stay away from all alcohol including beer.He denies any thoughts of wanting to harm himself or others. Domestic discord Alcohol abuse Suicidal and homicidal comments while under the influence Impression/Plan: Patient is cleared from acute psychiatric services. (24 hour petition was ). Patient is no longer under the influence. He denies suicidal and homicidal ideation; he admits he may have made comments while under the influence but does not remember. He actively engaged in developing his plan of care. He has been appropriate with [facility] ED staff with no behavioral outburst once sober (even after been served yesterday with domestic restraining order). He is able to reflect and communicate his thoughts and feeling. Patient is recommended to follow up with his outpatient provider, [facility] and engage in substance abuse treatment. He has been provided detox facilities and mobile crisis contact information. A referral to community paramedics has also been submitted to further assist the patient. Dr. Ortiz was consulted on the care and management of this patient; attending physician is in agreement with recommendations and disposition.
[2019-09-30 13:40] VITALS: BP 126/87
== END 2019-09-30 13:48 | disposition home or self-care (01) ==
LOC: ER 01:25
DX: R45.851 Suicidal ideations (principal); F10.920 Alcohol use, unspecified with intoxication, uncomplicated; F32.9 Major depressive disorder, single episode, unspecified; Z88.0 Allergy status to penicillin; F17.200 Nicotine dependence, unspecified, uncomplicated
CPT/HCPCS: 36415; 80053; 80307; 81001; 85025; 93005; 93010; 99285